=== PATIENT | male | born 1950 | race Caucasian/White ===

== ENCOUNTER 2016-05-31 09:40 | Inpatient (IN) | payer OTHER ==
[~2016-05-31] VITALS: Ht 167.6 cm; Wt 89.8 kg
[~2016-05-31 09:40] MED LIST: CIPRO500 MG PO; FLAGYL500 MG PO
[2016-05-31 10:15] LABS: HEMATOCRIT 43.2 % (38.0-50.0); MCH 29.5 PG (29.0-34.0); MCHC 33.3 G/DL (30.0-36.0); MCV 88.5 FL (86-99); MEAN PLAT.VOLUME 9.4 uM^3 (9.0-12.4); PLATELET COUNT 143 K/uL (156-360); RBC DIS.WIDTH-CV 13.6 % (11.8-14.6); RBC DIS.WIDTH-SD 44.3 % (39-53); RED BLOOD COUNT 4.88 M/uL (4.00-5.50)
[2016-05-31 10:26] LABS: CHLORIDE 104 mEq/L (99-109); POTASSIUM 4.2 mEq/L (3.7-5.4); SODIUM 135 mEq/L (136-147)
[2016-05-31 10:28] LABS: GLUCOSE 154 mg/dL (70-99)
[2016-05-31 10:29] LABS: ANION GAP 11 MEQ/L (2-14)
[2016-05-31 10:32] LABS: GFR ESTIMATE (CALCULATED) > 59 mL/min/
[2016-05-31 10:33] LABS: UREA NITROGEN (BUN) 13 mg/dL (9-23)
[2016-05-31 10:40] LABS: TROP-I INTERPRETATION NEGATIVE; TROPONIN-I 0.01 ng/mL (0.0-0.30)
[2016-05-31] MEDS ORDERED: ASPIR-LOW81 MG PO (12:02)
[2016-05-31] MEDS ORDERED: VITAMIN D31000 UNIT PO (12:03)
[2016-05-31] MEDS ORDERED: LOPRESSOR25 MG PO (12:03)
[2016-05-31] MEDS ORDERED: OMEPRAZOLE20 MG PO (12:03)
[2016-05-31] MEDS ORDERED: METFORMIN HCL500 MG PO (12:04)
[2016-05-31] MEDS ORDERED: NEURONTIN300 MG PO ×2 (12:04→12:05)
[2016-05-31] MEDS ORDERED: OXYCODONE-APAP1 EAC6 PO (12:05)
[2016-05-31] MEDS ORDERED: CILOSTAZOL100 MG PO (12:05)
[2016-05-31] MEDS ORDERED: SYNTHROID150 MCG PO (12:05)
[2016-05-31] MEDS ORDERED: FLUOXETINE HCL10 MG PO (12:05)
[2016-05-31] MEDS ORDERED: ATORVASTATIN CA80 MG PO (12:06)
[2016-05-31] MEDS ORDERED: MELATONIN5 M1 PO (12:07)
[2016-05-31] MEDS ORDERED: PROVENTIL HFA6.7 GM IH (12:07)
[2016-05-31] MEDS ORDERED: PROVENTIL,2.5 MG/0.5 IH (12:08)
[2016-05-31] MEDS ORDERED: COMBIVENT RESPIM4 GM IH (12:08)
[2016-05-31] MEDS ORDERED: SPIRIVA1 INHALATI IH (12:08)
[2016-05-31 13:19] VITALS: BP 139/62
[2016-05-31 15:24] LABS: POINT-OF-CARE METER ID UU14149397
[2016-05-31 15:50] VITALS: BP 136/64
[2016-05-31 16:28] LABS: TROP-I INTERPRETATION NEGATIVE; TROPONIN-I 0.01 ng/mL (0.0-0.30)
[2016-05-31 19:45] VITALS: BP 137/63
[2016-05-31 22:08] LABS: POINT-OF-CARE METER ID UU14149397
[2016-05-31 22:27] LABS: TROP-I INTERPRETATION NEGATIVE; TROPONIN-I 0.01 ng/mL (0.0-0.30)
[2016-05-31 22:37] LABS: INFLUENZA A VIRAL ANTIGEN NEGATIVE; INFLUENZA B VIRAL ANTIGEN POSITIVE
[2016-05-31 23:12] LABS: METH RESISTANT S AUREUS PCR NEGATIVE (NEGATIVE)
[2016-05-31 23:16] LABS: PROBE CHECK PASS; SPECIMEN PROCESSING CONTROL PASS
[2016-06-01 00:38] VITALS: BP 141/64
[2016-06-01 07:37] VITALS: BP 142/65
[2016-06-01 14:58] VITALS: BP 124/66
[2016-06-01 16:28] LABS: POINT-OF-CARE METER ID UU14149397
[2016-06-01 22:07] LABS: POINT-OF-CARE METER ID UU14149397
[2016-06-02 00:07] VITALS: BP 133/61
[2016-06-02 07:06] LABS: HEMATOCRIT 41.8 % (38.0-50.0); MCH 29.4 PG (29.0-34.0); MCHC 33.7 G/DL (30.0-36.0); MCV 87.3 FL (86-99); PLATELET COUNT 171 K/uL (156-360); RBC DIS.WIDTH-CV 13.2 % (11.8-14.6); RBC DIS.WIDTH-SD 42.5 % (39-53); RED BLOOD COUNT 4.79 M/uL (4.00-5.50)
[2016-06-02 07:07] LABS: ANION GAP 9 MEQ/L (2-14); CHLORIDE 102 MEQ/L (99-109); GFR ESTIMATE (CALCULATED) > 59 mL/min/; GLUCOSE 176 mg/dL (70-99); POTASSIUM 4.6 MEQ/L (3.7-5.4); SAMPLE HEMOLYSIS CHECK 0; SAMPLE ICTERIC CHECK 0; SAMPLE LIPEMIA CHECK 0; SODIUM 136 MEQ/L (136-147)
[2016-06-02 07:09] LABS: UREA NITROGEN (BUN) 24 mg/dL (9-23)
[2016-06-02 08:17] VITALS: BP 139/63
[2016-06-02 12:00] LABS: POINT-OF-CARE METER ID UU14149397
[2016-06-02 14:48] LABS: ADD MIUA? NO; BILIRUBIN NEGATIVE; BLOOD NEGATIVE; COLOR YELLOW ((YELLOW)); GLUCOSE (STRIP) NEGATIVE; KETONES NEGATIVE; LEUKOCYTES NEGATIVE; NITRITE NEGATIVE; PROTEIN (STRIP) TRACE; SPECIFIC GRAVITY 1.015 (1.000-1.030); UROBILINOGEN 0.2 MG/DL (0.2-1.0)
[2016-06-02 15:54] VITALS: BP 137/64
[2016-06-02 16:24] LABS: POINT-OF-CARE METER ID UU14149397
[2016-06-02 20:00] VITALS: BP 118/56
[2016-06-03 00:41] VITALS: BP 123/66
[2016-06-03 01:27] LABS: C DIFF TOXIN NEGATIVE (NEGATIVE)
[2016-06-03 01:32] LABS: PROBE CHECK PASS; SPECIMEN PROCESSING CONTROL PASS
[2016-06-03 05:21] VITALS: BP 130/64
[2016-06-03 05:50] LABS: HEMATOCRIT 40.7 % (38.0-50.0); MCH 29.3 PG (29.0-34.0); MCHC 33.7 G/DL (30.0-36.0); MCV 87.2 FL (86-99); PLATELET COUNT 186 K/uL (156-360); RBC DIS.WIDTH-CV 13.3 % (11.8-14.6); RBC DIS.WIDTH-SD 43.1 % (39-53); RED BLOOD COUNT 4.67 M/uL (4.00-5.50); WHITE BLOOD COUNT 16.8 K/uL (4.1-10.2)
[2016-06-03 06:14] LABS: ANION GAP 9 MEQ/L (2-14); CHLORIDE 103 MEQ/L (99-109); GFR ESTIMATE (CALCULATED) > 59 mL/min/; GLUCOSE 153 mg/dL (70-99); POTASSIUM 4.4 MEQ/L (3.7-5.4); SAMPLE HEMOLYSIS CHECK 0; SAMPLE ICTERIC CHECK 0; SAMPLE LIPEMIA CHECK 0; SODIUM 137 MEQ/L (136-147); UREA NITROGEN (BUN) 24 mg/dL (9-23)
[2016-06-03 07:11] LABS: POINT-OF-CARE METER ID UU14149397
[2016-06-03 08:15] VITALS: BP 140/74
[2016-06-03] MEDS ORDERED: OSELTAMIVIR PHO75 MG PO (10:50)
[2016-06-03] MEDS ORDERED: PREDNISONE10 MG PO (10:50)
[2016-06-03] MEDS ORDERED: NICOTINE PATCH1 EAC2 TD (10:50)
[2016-06-03 11:28] VITALS: BP 139/67
== END 2016-06-03 13:21 | disposition home or self-care (01) | DRG 190 ==
LOC: EME → EDBD 09:40 → EME 09:40 → 3EAST 11:15 → EDOF 11:15 → 3EAST 11:15 → EDOF 11:45 → 3EAST 12:56
PROVIDERS: Emergency Medicine; Hospitalist; Internal Medicine; Physician Assistant; Student in an Organized Health Care Education/Training Program
DX: J44.0 Chronic obstructive pulmonary disease with (acute) lower respiratory infection (principal); J96.01 Acute respiratory failure with hypoxia; J10.1 Influenza due to other identified influenza virus with other respiratory manifestations; E11.9 Type 2 diabetes mellitus without complications; I25.10 Atherosclerotic heart disease of native coronary artery without angina pectoris; G47.33 Obstructive sleep apnea (adult) (pediatric); F17.210 Nicotine dependence, cigarettes, uncomplicated; F41.9 Anxiety disorder, unspecified; Z95.1 Presence of aortocoronary bypass graft
CPT/HCPCS: 71010; 80048; 81003; 82948; 84484; 85027; 87070; 87205; 87493; 87502; 87641; 93005; 94640; 94640 76; 94660; 94799; 99202; 99281; 99285; J1650; J1815; J2930; J7120; J7512; J7644

== ENCOUNTER 2017-01-23 18:51 | Inpatient (IN) | payer OTHER ==
[~2017-01-23] VITALS: Ht 167.6 cm; Wt 85.2 kg
[~2017-01-23 18:51] MED LIST changes: +ASPIR-LOW81 MG PO; +ATORVASTATIN CA80 MG PO; +CILOSTAZOL100 MG PO; +COMBIVENT RESPIM4 GM IH; +FLUOXETINE HCL10 MG PO; +LOPRESSOR25 MG PO; +MELATONIN5 M1 PO; +METFORMIN HCL500 MG PO; +NEURONTIN300 MG PO; +NICOTINE PATCH1 EAC2 TD; +OMEPRAZOLE20 MG PO; +OSELTAMIVIR PHO75 MG PO; +OXYCODONE-APAP1 EAC6 PO; +PREDNISONE10 MG PO; +PROVENTIL HFA6.7 GM IH; +PROVENTIL,2.5 MG/0.5 IH; +SPIRIVA1 INHALATI IH; +SYNTHROID175 MCG PO; +VITAMIN D31000 UNIT PO
[2017-01-23 21:48] LABS: EOSINOPHIL (%) 0.4 % (0-5); HEMATOCRIT 41.7 % (38.0-50.0); IMMATURE GRANULOCYTE (%) 0.5 % (0.0-0.7); IMMATURE GRANULOCYTE COUNT 0.1 K/uL; INSTRUMENT ABS NEUTROPHIL CT 10.2 K/uL; LYMPHOCYTE COUNT 0.8 K/uL (1.0-2.8); MCH 29.7 PG (29.0-34.0); MCHC 32.9 G/DL (30.0-36.0); MCV 90.5 FL (86-99); MEAN PLAT.VOLUME 9.5 uM^3 (9.0-12.4); MONOCYTE (%) 1.2 % (3-12); MONOCYTE COUNT 0.1 K/uL (0-0.8); NEUTROPHIL (%) 90.4 % (45-76); NEUTROPHIL COUNT 10.2 K/uL (1.8-6.4); PLATELET COUNT 188 K/uL (156-360); RBC DIS.WIDTH-CV 14.6 % (11.8-14.6); RBC DIS.WIDTH-SD 47.9 % (39-53); RED BLOOD COUNT 4.61 M/uL (4.00-5.50); WHITE BLOOD COUNT 11.3 K/uL (4.1-10.2)
[2017-01-23 22:00] LABS: CHLORIDE 103 mEq/L (99-109); POTASSIUM 4.3 mEq/L (3.7-5.4); SODIUM 138 mEq/L (136-147)
[2017-01-23 22:02] LABS: GLUCOSE 157 mg/dL (70-99)
[2017-01-23 22:04] LABS: ANION GAP 11 MEQ/L (2-14); TOTAL BILIRUBIN 0.9 mg/dL (0.0-1.0)
[2017-01-23 22:06] LABS: ALKALINE PHOSPHATASE 90 IU/L (3-129); GFR ESTIMATE (CALCULATED) > 59 mL/min/
[2017-01-23 22:07] LABS: UREA NITROGEN (BUN) 15 mg/dL (9-23)
[2017-01-23 22:10] LABS: TROP-I INTERPRETATION POSITIVE
[2017-01-23 22:13] LABS: TROPONIN-I 1.42 ng/mL (0.0-0.30)
[2017-01-23 22:40] LABS: INTER. NORMALIZED RATIO 1.2; PROTHROMBIN TIME 13.3 SEC (10.2-12.9)
[2017-01-23 22:43] LABS: PTT 30.7 SEC (25-37)
[2017-01-23] MEDS ORDERED: TRAZODONE HCL50 MG PO (23:50)
[2017-01-24 04:33] VITALS: BP 147/68
[2017-01-24 05:39] LABS: HEMATOCRIT 40.4 % (38.0-50.0); MCH 29.9 PG (29.0-34.0); MCHC 33.2 G/DL (30.0-36.0); MCV 90.2 FL (86-99); MEAN PLAT.VOLUME 10.2 uM^3 (9.0-12.4); PLATELET COUNT 201 K/uL (156-360); RBC DIS.WIDTH-CV 14.6 % (11.8-14.6); RBC DIS.WIDTH-SD 47.9 % (39-53); RED BLOOD COUNT 4.48 M/uL (4.00-5.50); WHITE BLOOD COUNT 8.6 K/uL (4.1-10.2)
[2017-01-24 05:44] LABS: TROP-I INTERPRETATION POSITIVE; TROPONIN-I 0.93 ng/mL (0.0-0.30)
[2017-01-24 06:43] LABS: ANION GAP 9 MEQ/L (2-14); CHLORIDE 99 MEQ/L (99-109); GFR ESTIMATE (CALCULATED) > 59 mL/min/; POTASSIUM 4.1 MEQ/L (3.7-5.4); SAMPLE HEMOLYSIS CHECK 0; SAMPLE ICTERIC CHECK 0; SAMPLE LIPEMIA CHECK 0; SODIUM 136 MEQ/L (136-147); UREA NITROGEN (BUN) 16 mg/dL (9-23)
[2017-01-24 06:48] LABS: GLUCOSE 265 mg/dL (70-99)
[2017-01-24 07:25] VITALS: BP 147/65
[2017-01-24 11:08] LABS: POINT-OF-CARE METER ID UU14174216
[2017-01-24 11:35] VITALS: BP 134/79
[2017-01-24 13:34] LABS: TROP-I INTERPRETATION POSITIVE; TROPONIN-I 1.09 ng/mL (0.0-0.30)
[2017-01-24 15:30] VITALS: BP 140/66
[2017-01-24 15:33] LABS: POINT-OF-CARE METER ID UU14314088
[2017-01-24 21:02] LABS: POINT-OF-CARE METER ID UU14174216
[2017-01-24 21:39] VITALS: BP 138/65
[2017-01-25 00:34] VITALS: BP 130/60
[2017-01-25 05:43] VITALS: BP 145/65
[2017-01-25 07:20] LABS: Estimated Average Glucose 146 mg/dL (70-123); HEMOGLOBIN A1c (GLYCOHEMOGLOB) 6.7 % HGB (Below 5.7)
[2017-01-25 09:30] VITALS: BP 148/64
[2017-01-25 09:36] LABS: POINT-OF-CARE METER ID UU14174216
[2017-01-25 11:24] LABS: POINT-OF-CARE METER ID UU13113781
[2017-01-25 11:30] VITALS: BP 114/56
[2017-01-25 11:57] LABS: ANION GAP 7 MEQ/L (2-14); CHLORIDE 99 MEQ/L (99-109); GFR ESTIMATE (CALCULATED) > 59 mL/min/; GLUCOSE 268 mg/dL (70-99); SAMPLE HEMOLYSIS CHECK 0; SAMPLE ICTERIC CHECK 0; SAMPLE LIPEMIA CHECK 0; SODIUM 135 MEQ/L (136-147)
[2017-01-25 12:09] LABS: UREA NITROGEN (BUN) 27 mg/dL (9-23)
[2017-01-25 16:53] VITALS: BP 122/58
[2017-01-25 17:10] LABS: POINT-OF-CARE METER ID UU13113781
[2017-01-25 19:43] VITALS: BP 110/55
[2017-01-25 20:54] LABS: POINT-OF-CARE METER ID UU14174216
[2017-01-26] VITALS (7 sets, daily range): BP systolic 114–144; BP diastolic 57–68
[2017-01-26 07:53] LABS: POINT-OF-CARE METER ID UU14174216
[2017-01-26 09:24] LABS: EOSINOPHIL (%) 0 % (0-5); HEMATOCRIT 41.1 % (38.0-50.0); IMMATURE GRANULOCYTE (%) 0.6 % (0.0-0.7); IMMATURE GRANULOCYTE COUNT 0.1 K/uL; INSTRUMENT ABS NEUTROPHIL CT 17.2 K/uL; LYMPHOCYTE COUNT 0.7 K/uL (1.0-2.8); MCH 28.9 PG (29.0-34.0); MCHC 31.9 G/DL (30.0-36.0); MCV 90.5 FL (86-99); MEAN PLAT.VOLUME 10.3 uM^3 (9.0-12.4); MONOCYTE COUNT 0.6 K/uL (0-0.8); NEUTROPHIL (%) 92.4 % (45-76); NEUTROPHIL COUNT 17.2 K/uL (1.8-6.4); PLATELET COUNT 229 K/uL (156-360); RBC DIS.WIDTH-CV 14.9 % (11.8-14.6); RBC DIS.WIDTH-SD 48.8 % (39-53); RED BLOOD COUNT 4.54 M/uL (4.00-5.50); WHITE BLOOD COUNT 18.6 K/uL (4.1-10.2)
[2017-01-26 09:37] LABS: ANION GAP 8 MEQ/L (2-14); CHLORIDE 99 MEQ/L (99-109); GFR ESTIMATE (CALCULATED) > 59 mL/min/; GLUCOSE 210 mg/dL (70-99); POTASSIUM 4.5 MEQ/L (3.7-5.4); SAMPLE HEMOLYSIS CHECK 0; SAMPLE ICTERIC CHECK 0; SAMPLE LIPEMIA CHECK 0; SODIUM 139 MEQ/L (136-147); UREA NITROGEN (BUN) 30 mg/dL (9-23)
[2017-01-26 11:30] LABS: POINT-OF-CARE METER ID UU14174216
[2017-01-26 16:35] LABS: POINT-OF-CARE METER ID UU14174216
[2017-01-26 20:53] LABS: POINT-OF-CARE METER ID UU13113698
[2017-01-27 04:08] VITALS: BP 181/72
[2017-01-27 06:03] LABS: GFR ESTIMATE (CALCULATED) > 59 mL/min/; SAMPLE HEMOLYSIS CHECK 0; SAMPLE ICTERIC CHECK 0; SAMPLE LIPEMIA CHECK 0; UREA NITROGEN (BUN) 28 mg/dL (9-23)
[2017-01-27 08:30] VITALS: BP 128/58
[2017-01-27 08:43] LABS: POINT-OF-CARE METER ID UU14314088; POINT-OF-CARE USER ID ENVKC36
[2017-01-27 09:28] LABS: CHLORIDE 100 MEQ/L (99-109); POTASSIUM 4.7 MEQ/L (3.7-5.4); SODIUM 140 MEQ/L (136-147)
[2017-01-27 09:44] LABS: ANION GAP 10 MEQ/L (2-14)
[2017-01-27 10:43] LABS: GLUCOSE 159 mg/dL (70-99)
[2017-01-27 11:55] LABS: POINT-OF-CARE METER ID UU14314088; POINT-OF-CARE USER ID ENVKC36
[2017-01-27 12:45] VITALS: BP 116/58
[2017-01-27 17:34] LABS: POINT-OF-CARE METER ID UU13113819
[2017-01-27 19:30] VITALS: BP 138/73
[2017-01-27 20:30] VITALS: BP 138/73
[2017-01-27 20:53] LABS: POINT-OF-CARE METER ID UU14314088
[2017-01-27 23:00] VITALS: BP 155/68
[2017-01-28 03:39] VITALS: BP 150/66
[2017-01-28 03:47] VITALS: BP 140/80; BP 150/66
[2017-01-28 04:53] LABS: HEMATOCRIT 43.4 % (38.0-50.0); MCH 29.3 PG (29.0-34.0); MCHC 32.7 G/DL (30.0-36.0); MCV 89.7 FL (86-99); MEAN PLAT.VOLUME 10.4 uM^3 (9.0-12.4); PLATELET COUNT 221 K/uL (156-360); RBC DIS.WIDTH-CV 14.5 % (11.8-14.6); RBC DIS.WIDTH-SD 47.3 % (39-53); RED BLOOD COUNT 4.84 M/uL (4.00-5.50); WHITE BLOOD COUNT 11.9 K/uL (4.1-10.2)
[2017-01-28 05:13] LABS: CHLORIDE 101 mEq/L (99-109); POTASSIUM 4.6 mEq/L (3.7-5.4); SODIUM 138 mEq/L (136-147)
[2017-01-28 05:15] LABS: GLUCOSE 182 mg/dL (70-99)
[2017-01-28 05:16] LABS: ANION GAP 7 MEQ/L (2-14)
[2017-01-28 05:18] LABS: GFR ESTIMATE (CALCULATED) > 59 mL/min/
[2017-01-28 05:19] LABS: UREA NITROGEN (BUN) 31 mg/dL (9-23)
[2017-01-28 07:45] VITALS: BP 130/66
[2017-01-28 07:52] LABS: POINT-OF-CARE METER ID UU13113698
[2017-01-28] MEDS ORDERED: LISINOPRIL2.5 MG PO (09:05)
== END 2017-01-28 10:25 | disposition short-term general hospital (02) | DRG 280 ==
LOC: EME 18:51 → 4EAST 01-24 00:58 → EDOF 01-24 00:58 → ENRESERV 01-24 00:59 → 4EAST 01-24 04:21
PROVIDERS: Emergency Medicine; Hospitalist; Internal Medicine; Internal Medicine Cardiovascular Disease
DX: I11.0 Hypertensive heart disease with heart failure (principal); I50.33 Acute on chronic diastolic (congestive) heart failure; I21.4 Non-ST elevation (NSTEMI) myocardial infarction; J96.01 Acute respiratory failure with hypoxia; J44.1 Chronic obstructive pulmonary disease with (acute) exacerbation; I25.82 Chronic total occlusion of coronary artery; I25.810 Atherosclerosis of coronary artery bypass graft(s) without angina pectoris; E11.51 Type 2 diabetes mellitus with diabetic peripheral angiopathy without gangrene; I27.20 Pulmonary hypertension, unspecified; I08.3 Combined rheumatic disorders of mitral, aortic and tricuspid valves; E78.5 Hyperlipidemia, unspecified; I25.10 Atherosclerotic heart disease of native coronary artery without angina pectoris; G47.33 Obstructive sleep apnea (adult) (pediatric); E03.9 Hypothyroidism, unspecified; F17.210 Nicotine dependence, cigarettes, uncomplicated; E66.9 Obesity, unspecified; I25.2 Old myocardial infarction; Z68.30 Body mass index [BMI] 30.0-30.9, adult; Z79.01 Long term (current) use of anticoagulants; Z79.82 Long term (current) use of aspirin; Z95.1 Presence of aortocoronary bypass graft; Z79.84 Long term (current) use of oral hypoglycemic drugs
CPT/HCPCS: 71020; 71275; 80048; 80053; 82565; 82948; 83036; 83605; 83880; 84484; 84520; 85025; 85027; 85610; 85730; 87040; 93005; 93306; 93970; 94640; 94640 76; 94660; 94760; 94799; 99202; 99281; 99284; C1769; C1887; C1894; J0461; J1100; J1644; J1815; J1940; J2250; J2930; J3010; J7040; J7512; J7644

== ENCOUNTER 2017-02-09 14:49 | Observation (INO) | payer OTHER ==
[~2017-02-09] VITALS: Ht 167.6 cm; Wt 98.1 kg
[~2017-02-09 14:49] MED LIST changes: +LISINOPRIL2.5 MG PO; +TRAZODONE HCL50 MG PO
[2017-02-09 15:32] LABS: MCH 30.1 PG (29.0-34.0); MCV 91.2 FL (86-99); MEAN PLAT.VOLUME 9.1 uM^3 (9.0-12.4); PLATELET COUNT 213 K/uL (156-360); RBC DIS.WIDTH-CV 15.4 % (11.8-14.6); RBC DIS.WIDTH-SD 49.9 % (39-53); WHITE BLOOD COUNT 10.6 K/uL (4.1-10.2)
[2017-02-09 15:33] LABS: RED BLOOD COUNT 3.29 M/uL (4.00-5.50)
[2017-02-09 15:40] LABS: CHLORIDE 102 mEq/L (99-109); POTASSIUM 4.4 mEq/L (3.7-5.4); SODIUM 137 mEq/L (136-147)
[2017-02-09 15:42] LABS: GLUCOSE 127 mg/dL (70-99)
[2017-02-09 15:43] LABS: ANION GAP 11 MEQ/L (2-14)
[2017-02-09 15:44] LABS: TOTAL BILIRUBIN 1.3 mg/dL (0.0-1.0)
[2017-02-09 15:45] LABS: ALKALINE PHOSPHATASE 67 IU/L (3-129)
[2017-02-09 15:46] LABS: GFR ESTIMATE (CALCULATED) > 59 mL/min/
[2017-02-09 15:47] LABS: UREA NITROGEN (BUN) 11 mg/dL (9-23)
[2017-02-09 15:51] LABS: TROP-I INTERPRETATION NEGATIVE; TROPONIN-I < 0.01 ng/mL (0.0-0.30)
[2017-02-09 15:57] LABS: INTER. NORMALIZED RATIO 1.1; PROTHROMBIN TIME 12.4 SEC (10.2-12.9)
[2017-02-09 15:59] LABS: PTT 28.4 SEC (25-37)
[2017-02-09 19:05] LABS: TROP-I INTERPRETATION NEGATIVE; TROPONIN-I 0.01 ng/mL (0.0-0.30)
[2017-02-09] MEDS ORDERED: LISINOPRIL2.5 MG PO (19:05)
[2017-02-09] MEDS ORDERED: BRILINTA90 MG PO (19:10)
[2017-02-09 21:01] LABS: IRON 57 MCG/DL (35-150); SAMPLE HEMOLYSIS CHECK 0; SAMPLE ICTERIC CHECK 0; SAMPLE LIPEMIA CHECK 0
[2017-02-09 21:06] LABS: ABSOLUTE RETICULOCYTE CT. 0.1 M/uL (0.02-0.08); IMM.RETIC FRACTION 30.2 % (3-19); RETICULOCYTE COUNT 4.1 % (0.5-1.8)
[2017-02-09 21:18] LABS: FERRITIN 123 NG/ML (22-322)
[2017-02-09 22:03] VITALS: BP 141/66
[2017-02-09 22:20] LABS: POINT-OF-CARE METER ID UU13113831
[2017-02-09 22:59] LABS: TROP-I INTERPRETATION NEGATIVE; TROPONIN-I 0.01 ng/mL (0.0-0.30)
[2017-02-10 04:00] VITALS: BP 143/59
[2017-02-10 05:23] LABS: HEMATOCRIT 31.2 % (38.0-50.0); MCH 29.9 PG (29.0-34.0); MCV 90.4 FL (86-99); MEAN PLAT.VOLUME 9.6 uM^3 (9.0-12.4); PLATELET COUNT 223 K/uL (156-360); RBC DIS.WIDTH-CV 15.4 % (11.8-14.6); RBC DIS.WIDTH-SD 49.1 % (39-53); RED BLOOD COUNT 3.45 M/uL (4.00-5.50); WHITE BLOOD COUNT 10.6 K/uL (4.1-10.2)
[2017-02-10 06:02] LABS: ANION GAP 11 MEQ/L (2-14); CHLORIDE 98 MEQ/L (99-109); GFR ESTIMATE (CALCULATED) > 59 mL/min/; POTASSIUM 4.6 MEQ/L (3.7-5.4); SAMPLE HEMOLYSIS CHECK 0; SAMPLE ICTERIC CHECK 0; SAMPLE LIPEMIA CHECK 0; SODIUM 136 MEQ/L (136-147); UREA NITROGEN (BUN) 18 mg/dL (9-23)
[2017-02-10 06:08] LABS: GLUCOSE 283 mg/dL (70-99)
[2017-02-10 08:05] VITALS: BP 119/58
[2017-02-10 08:21] LABS: POINT-OF-CARE METER ID UU14162513
[2017-02-10 11:46] LABS: POINT-OF-CARE METER ID UU14162513
[2017-02-10 11:48] VITALS: BP 135/61
[2017-02-10] MEDS ORDERED: LASIX20 MG PO (13:43)
[2017-02-10] MEDS ORDERED: PREDNISONE20 MG PO (13:53)
== END 2017-02-10 15:23 | disposition home or self-care (01) ==
LOC: EME 14:49 → EDOF 19:33 → 5WEST 19:33 → EDOF 19:33 → ENRESERV 19:46 → 5WEST 21:48
PROVIDERS: Emergency Medicine; Hospitalist
DX: J44.1 Chronic obstructive pulmonary disease with (acute) exacerbation (principal); I11.0 Hypertensive heart disease with heart failure; I50.33 Acute on chronic diastolic (congestive) heart failure; D64.9 Anemia, unspecified; E11.51 Type 2 diabetes mellitus with diabetic peripheral angiopathy without gangrene; I25.10 Atherosclerotic heart disease of native coronary artery without angina pectoris; I35.0 Nonrheumatic aortic (valve) stenosis; Z95.1 Presence of aortocoronary bypass graft; Z95.5 Presence of coronary angioplasty implant and graft; I45.19 Other right bundle-branch block; F17.200 Nicotine dependence, unspecified, uncomplicated; E78.5 Hyperlipidemia, unspecified; E66.9 Obesity, unspecified; Z79.82 Long term (current) use of aspirin; Z79.84 Long term (current) use of oral hypoglycemic drugs; Z79.02 Long term (current) use of antithrombotics/antiplatelets; E03.9 Hypothyroidism, unspecified; G47.33 Obstructive sleep apnea (adult) (pediatric); Z86.19 Personal history of other infectious and parasitic diseases; Z82.49 Family history of ischemic heart disease and other diseases of the circulatory system; Z82.5 Family history of asthma and other chronic lower respiratory diseases; Z83.3 Family history of diabetes mellitus
CPT/HCPCS: 71275; 80048; 80053; 82272; 82607; 82728; 82746; 82948; 83540; 83880; 84466; 84484; 85027; 85045; 85610; 85730; 93005; 93971; 94640; 94640 76; 94660; 94760; 94799; 99202; 99281; 99284; G0378; J1644; J1815; J1940; J2920